=== PATIENT | female | born 2000 | race Caucasian/White ===

== ENCOUNTER 2020-02-07 21:38 | Emergency (ER) | payer OTHER ==
[~2020-02-07] VITALS: Ht 167.6 cm; Wt 54.4 kg
--- NOTE | 2020-02-07 21:45 | Emergency Department Note ---
History of Present Illnes History of Present Illness Chief Complaint: Headache History of Present Illness This is a 19 year old female c/o MATIAS, loss of smell, exposed to COVID for 3-4 days . Historian: Patient, Family Member In Home Nanny Required: No Onset (how long ago): day(s) Radiation: Reports non-radiation Severity: mild Duration (how long): day(s) Timing of current episode: intermittent Progression: waxing and waning Relieving factors: none Exacerbating factors: none Treatments prior to arrival: none Past Medical/Family History Physician Review I have reviewed the patient's past medical and family history. Any updates have been documented here. Past Medical History Recent Fever: No Clinical Suspicion of Infectio: No New/Unexplained Change in Ment: No Past Medical History: None Past Surgical History: None Social History Smoking Cessation: Smoker current status unk Alcohol Use: None Any Illegal Drug Use: No TB Exposure/Symptoms: No Physically hurt or threatened: No Family History Family history of heart diseas: No Other Is patient up to date on immun: No Review of Systems Review of Systems Constitutional: Reports no symptoms EENTM: Reports no symptoms Cardiovascular: Reports no symptoms Respiratory: Reports no symptoms Gastrointestinal: Reports no symptoms Genitourinary: Reports no symptoms Musculoskeletal: Reports no symptoms Integumentary: Reports no symptoms Neurological: Reports as per HPI, Reports headache Psychological: Reports no symptoms Endocrine: Reports no symptoms Hematological/Lymphatic: Reports no symptoms Physical Exam Related Data Allergies: Coded Allergies: No Known Allergies (Unverified , 02/07/20) Physical Exam CONSTITUTIONAL Constitutional: Present well-developed, Present well-nourished HENT HENT: Present normocephalic, Present atraumatic, Present oropharynx clear/moist, Present nose normal HENT L/R: Present left ext ear normal, Present right ext ear normal EYES Eyes: Reports PERRL, Reports conjunctivae normal NECK Neck: Present ROM normal PULMONARY Pulmonary: Present effort normal, Present breath sounds normal CARDIOVASCULAR Cardiovascular: Present regular rhythm, Present heart sounds normal, Present capillary refill normal, Present normal rate GASTROINTESTINAL Abdominal: Present soft, Present nontender, Present bowel sounds normal GENITOURINARY Genitourinary: Present exam deferred SKIN Skin: Present warm, Present dry MUSCULOSKELETAL Musculoskeletal: Present ROM normal NEUROLOGICAL Neurological: Present alert, Present oriented x 3, Present no gross motor or sensory deficits PSYCHOLOGICAL Psychological: Present mood/affect normal, Present judgement normal Results Laboratory Lab results reviewed: Yes Laboratory comments covid 19 positive Assessment & Plan Medical Decision Making MDM likely covid 19 Assessment & Plan Final Impression: (1) COVID-19 (2) Viral syndrome Depart Disposition: HOME, SELF-CARE Physician Attestation Provider Attestation mild symptoms, ok to d/c home with self quarantine CHARLES JERRY MD Feb 07, 2020 21:45
== END 2020-02-07 22:11 | disposition home or self-care (01) ==
LOC: FSED 21:38
DX: R51 Headache (principal); U07.1 COVID-19; B34.9 Viral infection, unspecified
CPT/HCPCS: 87635; 99282